=== PATIENT | female | born 1995 | race African-American/Black ===

== ENCOUNTER 2016-03-06 23:02 | Emergency (ER) | payer MEDICAID ==
[~2016-03-06 23:02] MED LIST: MACR100C2 PO; PRENTAB36 PO; ZOFR4TAB3 SL
[2016-03-06 23:04] VITALS: BP 132/69; PULSE 89; RESP 14; TEMP 98.3; O2SAT 97
--- NOTE | 2016-03-06 23:24 | PD ---
HPI Chief Complaint: Complaint Time Seen by Provider: 23:20 Travel History International Travel<30 days: No Contact w/Intl Traveler<30days: No Traveled to known affect area: No History of Present Illness HPI This is a 20-year-old female who presents to the emergency department with dysuria, urinary frequency and urgency as well as some back pain. She says it has been going on for 2-3 days. She denies any fevers or chills. She denies any vomiting. She denies any vaginal discharge. PFSH Past Medical History Immunizations Current: Yes : 1 Para: 1 Social History Alcohol Use: No Tobacco Use: No Substance Use: Yes Allergies-Medications (Allergen,Severity, Reaction): Coded Allergies: No Known Allergies (Unverified , 03/06/16) Reported Meds & Prescriptions Reported Meds & Active Scripts Active Macrobid (Nitrofurantoin Monoh/Nitrofur Macro) 100 Mg Cap 100 Mg PO BID 5 Days Forte ( Multivit-Min W/Fe-FA) 1 Tab Tab 1 Tab PO DAILY 90 Days Zofran Odt (Ondansetron Odt) 4 Mg Tab 4 Mg SL Q8HR PRN Review of Systems Except as stated in HPI: all other systems reviewed are Neg Physical Exam Narrative GENERAL: Well-nourished, smells like marijuana. SKIN: Warm and dry. HEAD: Normocephalic. EYES: No scleral icterus. No injection or drainage. NECK: Supple, trachea midline. CARDIOVASCULAR: Regular rate and rhythm without murmurs. RESPIRATORY: Breath sounds equal bilaterally. No accessory muscle use. GASTROINTESTINAL: Abdomen soft, non-tender, nondistended. : No CVA tenderness. MUSCULOSKELETAL: No cyanosis, or edema. PSYCH: somewhat bizarre affect and poor eye contact Data Data Last Documented VS Vital Signs Date Time Temp Pulse Resp B/P Pulse Ox O2 Delivery O2 Flow Rate FiO2 03/06/16 23:04 98.3 89 14 132/69 97 Room Air Orders Urinalysis - C+S If Indicated (03/06/16 23:20) Urine Culture (03/06/16 23:30) Labs Laboratory Tests Test 03/06/16 23:30 Urine Color YELLOW Urine Turbidity HAZY Urine pH 6.0 Urine Specific [place] 1.036 Urine Protein 30 mg/dL Urine Glucose (UA) NEG mg/dL Urine Ketones NEG mg/dL Urine Occult Blood MOD Urine Nitrite NEG Urine Bilirubin NEG Urine Urobilinogen 4.0 MG/DL Urine Leukocyte Esterase MOD Urine RBC 2 /hpf Urine WBC 22 /hpf Urine Squamous Epithelial 7 /hpf Cells Urine Bacteria RARE /hpf Urine Hyaline Casts 6 /lpf Urine Mucus MANY /lpf Microscopic Urinalysis Comment CULTURE INDICATED MDM Medical Decision Making Medical Screen Exam Complete: Yes Emergency Medical Condition: Yes Interpretation(s) Afebrile, normotensive Urinalysis: 22 white blood cells, moderate leukocyte esterase Differential Diagnosis Urinary tract infection, pelvic inflammatory disease, Trichomonas Narrative Course This is a 20-year-old female who presents to the emergency department with dysuria, urinary urgency and frequency classic for urinary tract infection. She denies any vaginal discharge. Urinalysis demonstrates urinary tract infection. Patient will be discharged on antibiotics. Diagnosis Primary Impression: Urinary tract infection Qualified Code: N30.00 - Acute cystitis without hematuria Additional Instructions: If you develop fever, persistent vomiting, back pain, or inability to eat return to the emergency department as your urine infection may have progressed to a kidney infection. Complete your antibiotics as prescribed. Stay well hydrated with Gatorade or water. Followup with your primary care physician in 2-3 days if your symptoms have not resolved. Med/Other Pt SpecificInfo: Prescription(s) given Scripts Cephalexin (Keflex)500 Mg Ate227 Mg PO Q12H 7 Days Ref 0 Prov:Jenn Watkins MD 03/07/16 Disposition: 01 DISCHARGE HOME Condition: Stable Jenn Watkins MD Mar 06, 2016 23:24
[2016-03-07 00:30] LABS: BACTERIA, URINE RARE /hpf; BLOOD, URINE MOD (NEG); COMMENT (UR) CULTURE INDICATED; CULTURE IF INDICATED CULTURE INDICATED; GLUCOSE,URINE NEG (NEG); HYALINE CAST, URINE 6 /lpf (RARE); KETONE, URINE NEG (NEG); MUCUS URINE MANY /lpf (OCC); NITRITE,URINE NEG (NEG); SQUAMOUS EPITHELIAL CELL URINE 7 /hpf (0-5); URINE COLOR YELLOW (YELLW/STRAW)
[2016-03-07] MEDS ORDERED: CEPH-460 PO (00:36)
== END 2016-03-07 00:59 | disposition home or self-care (01) ==
LOC: NEPC 23:02
DX: N30.00 Acute cystitis without hematuria (principal); R35.0 Frequency of micturition
CPT/HCPCS: 81001; 87086; 99283

== ENCOUNTER 2016-05-22 07:22 | Inpatient (IN) | payer MEDICAID ==
[2016-05-22] VITALS (95 sets, daily range): BP systolic 84–130; BP diastolic 37–63; PULSE 73–106; RESP 16–18; TEMP 97.7–98.3
[~2016-05-22 07:22] MED LIST changes: +CEPH-460 PO
--- NOTE | 2016-05-22 07:55 | PD ---
HPI Chief Complaint concern for ROM Date Seen: May 22, 2016 (Jeramy Mejía MD R2) Travel History International Travel<30 Days: No Contact w/Intl Traveler<30Days: No (Jeramy Mejía MD R2) History of Present Illness HPI Ms. Bah is a 20 yo at 32 5/7 weeks (WILIAM 07/12/2016) patient of Dr. Olivarez who presents with concern for ROM. Patient states that she awoke with abundant water around her genital region this morning; patient states that she does not think she urinated. Patient denies associated abdominal pain suggestive of contractions. Patient denies vaginal bleeding. Patient does not report fever/chills, dysuria, headaches, visual changes, chest pain, shortness of breath, or leg swelling. Patient reports unremarkable course; she states that she is a patient of Dr. Olivarez. Patient reports prior ultrasounds were reassuring. Patient states she does not have a history of delivery. Para: 1 : 2 (Jeramy Mejía MD R2) History Past Medical History Medical History: Denies Significant Hx (Jeramy Mejía MD R2) Obstetric History Obstetric History First delivery was vaginal, full term (Jeramy Mejía MD R2) Past Surgical History Surgical History: No Previous Surgery (Jeramy Mejía MD R2) Social History Alcohol Use: No Substance Abuse: No (Jeramy Mejía MD R2) Allergies-Medications (Allergen,Severity, Reaction): Coded Allergies: No Known Allergies (Unverified , 03/07/16) Home Meds Active Scripts Cephalexin (Keflex)500 Mg Dry531 Mg PO Q12H 7 Days Ref 0 Prov:Jenn Watkins MD 03/07/16 Nitrofurantoin Monohydrate Macrocrystals (Macrobid)100 Mg Fyt842 Mg PO BID 5 Days Ref 0 Prov:Giovanni Kinney MD 12/21/15 Multivit-Min W/Fe-FA ( Forte)1 Tab Tab1 Tab PO DAILY 90 Days Ref 3 Prov:Giovanni Kinney MD 12/21/15 Ondansetron Odt (Zofran Odt)4 Mg Tab4 Mg SL Q8HR PRN (Nausea/Vomiting) #20 TAB Ref 0 Prov:Giovanni Kinney MD 12/21/15 Review of Systems General / Constitutional: No: Fever, Chills Cardiovascular: No: Chest Pain or Discomfort Respiratory: No: Short of Breath Gastrointestinal: No: Nausea, Vomiting Genitourinary: No: Urgency, Dysuria (Jeramy Mejía MD R2) Physical Exam BP 132/79 HR 83 Narrative GENERAL: Well-nourished, well-developed patient. SKIN: Warm and dry. HEAD: Normocephalic and atraumatic. EYES: No scleral icterus. No injection or drainage. ENT: No nasal drainage noted. Mucous membranes pink. Airway patent. NECK: Supple, trachea midline. No JVD. CARDIOVASCULAR: Regular rate and rhythm without murmurs. Normal rate RESPIRATORY: Breath sounds equal bilaterally. No accessory muscle use. ABDOMEN/GI: Abdomen soft, non-tender, bowel sounds present, no rebound, no guarding Gravid EXTREMITIES: No cyanosis or edema. BACK: Nontender without obvious deformity. No CVA tenderness. NEUROLOGICAL: Awake and alert. Motor and sensory grossly function within normal limits. GENITOURINARY: Membranes: Ruptured Uterine Contractions: None FHT's: Category: 1 Baseline: 130 Reactive: Y Variability: Mod Decels: None (Jeramy Mejía MD R2) MDM Medical Record Reviewed: Yes Narrative Course / MDM 20 yo at 32 5/7 weeks (WILIAM 07/12/2016) patient of Dr. Olivarez -concern for ROM -No contractions on EFM -Benign history Plan: -Continue EFM -Check Amnisure Interval: -Amnisure positive Updated Plan: -Will admit patient for PPROM -Will administer Betamethasone -Will start MgSO4 for neuro PPX -Will initiate prophylactic antibiotics -IV PCN -Oral erythromycin (pharmacy out of IV Erythromycin) -Continue to monitor EFM (Jeramy Mejía MD R2) Attending Attestation The exam, history, and the medical decision-making described in the above note were completed with the assistance of the resident provider. I reviewed and agree with the findings presented. I attest that I had a [id number] encounter with the patient on the same day, and personally performed and documented my assessment and findings in the medical record. sterile spec exam performed: cervix visually closed, clear fluid pool present GC/CT and GBS cultures collected (Viraj Kaye MD) Jeramy Mejía MD R2 May 22, 2016 07:55 Viraj Kaye MD May 22, 2016 08:56
[2016-05-22] MEDS ORDERED: SODIUM CHLORIDE 0.9% FLUSH 10 ML FLUSH IV FLUSH PRN (08:00)
[2016-05-22] MEDS ORDERED: CALCIUM GLUCONATE 10% 1 GM/10 ML VIAL IV PRN (08:00)
[2016-05-22] MEDS ORDERED: BETAMETHASONE SOD PHOS/ACETATE SUSP 30 MG/5 ML VIAL IM SCH (08:00)
[2016-05-22] MEDS ORDERED: MAGNESIUM SULFATE 4 GM PREMIX 100 ML IV ONE (08:00)
--- NOTE | 2016-05-22 08:18 | HHI.HP ---
History & Physical H&P OB ED Note (Detail) Patient Name: Gio Bah Unit Number: [id number] Date of : 1995 Patient Status: Registered Emergency Room Attending Doctor: Viraj Kaye MD HPI HPI Chief Complaint concern for ROM Date Seen: May 22, 2016 Travel History International Travel<30 Days: No Contact w/Intl Traveler<30Days: No History of Present Illness HPI Ms. Bah is a 20 yo at 32 5/7 weeks (WILIAM 07/12/2016) patient of Dr. Olivarez who presents with concern for ROM. Patient states that she awoke with abundant water around her genital region this morning; patient states that she does not think she urinated. Patient denies associated abdominal pain suggestive of contractions. Patient denies vaginal bleeding. Patient does not report fever/chills, dysuria, headaches, visual changes, chest pain, shortness of breath, or leg swelling. Patient reports unremarkable course; she states that she is a patient of Dr. Olivarez. Patient reports prior ultrasounds were reassuring. Patient states she does not have a history of delivery. Para: 1 : 2 History (Limited) History Past Medical History Medical History: Denies Significant Hx Obstetric History Obstetric History First delivery was vaginal, full term Past Surgical History Surgical History: No Previous Surgery Social History Alcohol Use: No Substance Abuse: No Allergies-Medications Allergies-Medications (Allergen,Severity, Reaction): Coded Allergies: No Known Allergies (Unverified , 03/07/16) Home Meds Active Scripts Cephalexin (Keflex)500 Mg Flr777 Mg PO Q12H 7 Days Ref 0 Prov:Jenn Watkins MD 03/07/16 Nitrofurantoin Monohydrate Macrocrystals (Macrobid)100 Mg Dnh272 Mg PO BID 5 Days Ref 0 Prov:Giovanni Kinney MD 12/21/15 Multivit-Min W/Fe-FA ( Forte)1 Tab Tab1 Tab PO DAILY 90 Days Ref 3 Prov:Giovanni Kinney MD 12/21/15 Ondansetron Odt (Zofran Odt)4 Mg Tab4 Mg SL Q8HR PRN (Nausea/Vomiting) #20 TAB Ref 0 Prov:Giovanni Kinney MD 12/21/15 ROS Review of Systems General / Constitutional: No: Fever, Chills Cardiovascular: No: Chest Pain or Discomfort Respiratory: No: Short of Breath Gastrointestinal: No: Nausea, Vomiting Genitourinary: No: Urgency, Dysuria Physical Exam Physical Exam BP 132/79 HR 83 Narrative GENERAL: Well-nourished, well-developed patient. SKIN: Warm and dry. HEAD: Normocephalic and atraumatic. EYES: No scleral icterus. No injection or drainage. ENT: No nasal drainage noted. Mucous membranes pink. Airway patent. NECK: Supple, trachea midline. No JVD. CARDIOVASCULAR: Regular rate and rhythm without murmurs. Normal rate RESPIRATORY: Breath sounds equal bilaterally. No accessory muscle use. ABDOMEN/GI: Abdomen soft, non-tender, bowel sounds present, no rebound, no guarding Gravid EXTREMITIES: No cyanosis or edema. BACK: Nontender without obvious deformity. No CVA tenderness. NEUROLOGICAL: Awake and alert. Motor and sensory grossly function within normal limits. GENITOURINARY: Membranes: Ruptured Uterine Contractions: None FHT's: Category: 1 Baseline: 130 Reactive: Y Variability: Mod Decels: None Data Data MDM [facility] Medical Record Reviewed: Yes Narrative Course / MDM 20 yo at 32 5/7 weeks (WILIAM 07/12/2016) patient of Dr. Olivarez -concern for ROM -No contractions on EFM -Benign history Plan: -Continue EFM -Check Amnisure Interval: -Amnisure positive Updated Plan: -Will admit patient for PPROM -Will administer Betamethasone -Will start MgSO4 for neuro PPX -Will initiate prophylactic antibiotics -IV PCN -Oral erythromycin (pharmacy out of IV Erythromycin) -Continue to monitor EFM (Jeramy Mejía MD R2) H&P The exam, history, and the medical decision-making described in the above note were completed with the assistance of the resident provider. I reviewed and agree with the findings presented. I attest that I had a [id number] encounter with the patient on the same day, and personally performed and documented my assessment and findings in the medical record. sterile spec exam performed. cervix vis closed, clear fluid pool present GC/CT and GBS collected (Viraj Kaye MD) Jeramy Mejía MD R2 May 22, 2016 08:18 Viraj Kaye MD May 22, 2016 08:58
[2016-05-22] MEDS: SODIUM CHLORIDE 0.9% FLUSH 10 ML FLUSH IV FLUSH SCH ×2 (09:00→21:00)
[2016-05-22] MEDS ORDERED: PENICILLIN G POTASSIUM INJ 5,000,000 UNITS in SODIUM CHLORIDE 0.9% INJ 100 ML IV SCH (09:00)
[2016-05-22] MEDS: LACTATED RINGER'S 1000 ML INJ 1,000 ML IV SCH ×2 (09:39→17:19)
[2016-05-22] MEDS: MAGNESIUM SULFATE 40 GM PREMIX 1,000 ML IV SCH (09:46)
[2016-05-22] MEDS: BETAMETHASONE SOD PHOS/ACETATE SUSP 30 MG/5 ML VIAL IM SCH (09:48)
[2016-05-22 09:50] LABS: BLOOD, URINE NEG (NEG); COMMENT (UR) CULT NOT INDICATED; CULTURE IF INDICATED CULT NOT INDICATED; GLUCOSE,URINE NEG (NEG); KETONE, URINE NEG (NEG); MUCUS URINE FEW /lpf (OCC); NITRITE,URINE NEG (NEG); SQUAMOUS EPITHELIAL CELL URINE 1 /hpf (0-5); URINE COLOR YELLOW (YELLW/STRAW)
[2016-05-22 09:54] LABS: AMPHETAMINE, URINE NEG (NEG); BARBITURATES, URINE NEG (NEG); COCAINE, URINE NEG (NEG)
[2016-05-22 10:34] LABS: AUTOMATED NEUTROPHIL # 4.9 TH/MM3 (1.8-7.7); BASOPHIL % 0.3 % (0.0-2.0); EOSINOPHIL % 0.4 % (0.0-4.0); HEMATOCRIT 30.2 % (35.0-46.0); HEMO FLAGS DIFF FINAL; LYMPH % 27.4 % (9.0-44.0); LYMPHOCYTE # 2.2 TH/MM3 (1.0-4.8); MEAN CELL VOLUME 89.9 FL (80.0-100.0); MEAN CORPUSCULAR HEMOGLOBIN 30.3 PG (27.0-34.0); MEAN CORPUSCULAR HGB CONC 33.7 % (32.0-36.0); MONO % 11.8 % (0.0-8.0); NEUT % 60.1 % (16.0-70.0); PLATELET COUNT 219 TH/MM3 (150-450); RED BLOOD COUNT 3.36 MIL/MM3 (4.00-5.30); RED CELL DISTRIBUTION WIDTH 13.1 % (11.6-17.2); WHITE BLOOD COUNT 8.2 TH/MM3 (4.0-11.0)
[2016-05-22] MEDS: ERYTHROMYCIN EC 500 MG TABEC PO SCH ×2 (10:44→17:13)
[2016-05-22 12:31] LABS: AUTOMATED NEUTROPHIL # 6.9 TH/MM3 (1.8-7.7); BASOPHIL % 0.2 % (0.0-2.0); EOSINOPHIL % 0.1 % (0.0-4.0); HEMO FLAGS DIFF FINAL; LYMPH % 14.5 % (9.0-44.0); LYMPHOCYTE # 1.2 TH/MM3 (1.0-4.8); MEAN CELL VOLUME 90.9 FL (80.0-100.0); MONO % 4.4 % (0.0-8.0); NEUT % 80.8 % (16.0-70.0); PLATELET COUNT 222 TH/MM3 (150-450); RED BLOOD COUNT 3.52 MIL/MM3 (4.00-5.30); RED CELL DISTRIBUTION WIDTH 12.7 % (11.6-17.2); WHITE BLOOD COUNT 8.6 TH/MM3 (4.0-11.0)
[2016-05-22 13:08] LABS: RUBELLA IGG ANTIBODY 102.1 IU/mL (10.0-500.0); RUBELLA STATUS IMMUNE (IMMUNE)
[2016-05-22] MEDS: PENICILLIN G POTASSIUM INJ 2,500,000 UNITS in SODIUM CHLORIDE 0.9% INJ 100 ML IV SCH ×2 (16:00→22:07)
[2016-05-23] VITALS (155 sets, daily range): BP systolic 91–118; BP diastolic 36–65; PULSE 71–103; RESP 16–20; TEMP 98.1–98.4
[2016-05-23] MEDS: ERYTHROMYCIN EC 500 MG TABEC PO SCH ×4 (00:06→17:35)
[2016-05-23] MEDS: PENICILLIN G POTASSIUM INJ 2,500,000 UNITS in SODIUM CHLORIDE 0.9% INJ 100 ML IV SCH ×6 (01:14→21:01)
[2016-05-23] MEDS: LACTATED RINGER'S 1000 ML INJ 1,000 ML IV SCH (05:36)
[2016-05-23 05:52] LABS: AUTOMATED NEUTROPHIL # 10.7 TH/MM3 (1.8-7.7); BASOPHIL % 0.3 % (0.0-2.0); HEMATOCRIT 29.9 % (35.0-46.0); HEMO FLAGS DIFF FINAL; LYMPH % 10.7 % (9.0-44.0); LYMPHOCYTE # 1.4 TH/MM3 (1.0-4.8); MEAN CELL VOLUME 89.6 FL (80.0-100.0); MEAN CORPUSCULAR HEMOGLOBIN 30.6 PG (27.0-34.0); MEAN CORPUSCULAR HGB CONC 34.2 % (32.0-36.0); MONO % 6.6 % (0.0-8.0); NEUT % 82.4 % (16.0-70.0); PLATELET COUNT 250 TH/MM3 (150-450); RED BLOOD COUNT 3.34 MIL/MM3 (4.00-5.30)
[2016-05-23] MEDS: MAGNESIUM SULFATE 40 GM PREMIX 1,000 ML IV SCH (07:55)
[2016-05-23] MEDS: SODIUM CHLORIDE 0.9% FLUSH 10 ML FLUSH IV FLUSH SCH ×2 (09:00→21:00)
[2016-05-23] MEDS: DOCUSATE SODIUM 100 MG CAP PO SCH (09:39)
[2016-05-23] MEDS: BETAMETHASONE SOD PHOS/ACETATE SUSP 30 MG/5 ML VIAL IM SCH (09:39)
[2016-05-23] MEDS: MULTIVIT/MIN/PREN/FOL AC/IRON PRENATAL TAB PO SCH (09:39)
--- NOTE | 2016-05-23 11:51 | PD.OB.ANTE ---
Subjective Interval History Pt reports some ctxs this am but now feeling better, minimal drainage of fluid, no pain, no co Objective Vital Signs Vital Signs Date Time Temp Pulse Resp B/P Pulse Ox O2 Delivery O2 Flow Rate FiO2 05/23/16 10:40 80 05/23/16 10:35 78 05/23/16 10:30 77 05/23/16 10:25 83 05/23/16 10:20 84 05/23/16 10:15 79 05/23/16 10:10 82 05/23/16 10:05 82 05/23/16 10:00 98.2 05/23/16 10:00 89 107/48 05/23/16 10:00 77 05/23/16 09:58 18 05/23/16 09:55 103 05/23/16 09:50 93 05/23/16 09:45 91 05/23/16 09:40 97 05/23/16 09:35 87 05/23/16 09:30 80 05/23/16 09:25 79 05/23/16 09:20 78 05/23/16 09:15 77 05/23/16 09:10 81 05/23/16 09:05 79 05/23/16 09:00 83 91/46 05/23/16 09:00 81 05/23/16 08:55 81 05/23/16 08:50 82 05/23/16 08:45 85 05/23/16 08:40 78 05/23/16 08:35 79 05/23/16 08:30 78 05/23/16 08:25 79 05/23/16 08:20 78 05/23/16 08:15 79 05/23/16 08:10 79 05/23/16 08:05 87 05/23/16 08:00 79 104/47 05/23/16 08:00 85 05/23/16 07:40 86 05/23/16 07:35 86 05/23/16 07:30 90 05/23/16 07:25 79 05/23/16 07:20 84 05/23/16 07:15 87 05/23/16 07:11 98.3 18 05/23/16 07:10 94 05/23/16 07:05 81 05/23/16 07:00 78 05/23/16 07:00 80 118/48 05/23/16 06:21 20 05/23/16 06:20 77 05/23/16 06:15 78 05/23/16 06:10 75 05/23/16 06:05 75 05/23/16 06:00 74 05/23/16 06:00 77 100/46 05/23/16 05:30 20 05/23/16 05:20 80 05/23/16 05:15 87 05/23/16 05:10 103 05/23/16 05:05 90 05/23/16 05:00 77 05/23/16 05:00 80 112/52 05/23/16 04:06 20 05/23/16 04:05 87 05/23/16 04:00 88 05/23/16 04:00 94 108/43 05/23/16 03:35 20 05/23/16 03:10 79 05/23/16 03:05 81 05/23/16 03:00 81 05/23/16 03:00 85 104/52 05/23/16 02:45 80 05/23/16 02:40 79 05/23/16 02:35 80 05/23/16 02:30 81 05/23/16 02:25 84 05/23/16 02:20 79 05/23/16 02:15 80 05/23/16 02:10 77 18 05/23/16 02:05 77 05/23/16 02:00 86 05/23/16 02:00 82 108/63 05/23/16 01:16 18 05/23/16 01:15 73 05/23/16 01:10 75 05/23/16 01:05 71 05/23/16 01:00 72 05/23/16 01:00 76 99/58 05/23/16 00:11 20 05/23/16 00:05 79 05/23/16 00:00 78 109/65 05/23/16 00:00 86 05/22/16 23:45 97.7 05/22/16 23:41 18 05/22/16 23:40 78 05/22/16 23:35 80 05/22/16 23:30 79 05/22/16 23:25 83 05/22/16 23:20 73 05/22/16 23:15 79 05/22/16 23:10 78 05/22/16 23:05 76 05/22/16 23:00 75 112/54 05/22/16 23:00 73 05/22/16 22:15 82 18 05/22/16 22:10 85 05/22/16 22:05 92 05/22/16 22:01 88 98/43 05/22/16 22:00 86 05/22/16 21:15 98.3 81 18 05/22/16 21:10 89 05/22/16 21:05 86 05/22/16 21:00 83 122/60 05/22/16 21:00 84 05/22/16 20:00 82 05/22/16 20:00 18 05/22/16 20:00 83 130/54 05/22/16 19:55 89 05/22/16 19:50 87 05/22/16 19:45 86 05/22/16 19:40 84 05/22/16 19:35 84 05/22/16 19:30 84 05/22/16 19:25 85 05/22/16 19:20 94 05/22/16 19:15 83 05/22/16 19:10 86 05/22/16 19:05 84 05/22/16 19:00 84 95/37 05/22/16 19:00 78 05/22/16 18:20 87 05/22/16 18:15 89 05/22/16 18:10 91 05/22/16 18:05 85 05/22/16 18:00 88 84/63 05/22/16 18:00 81 05/22/16 17:55 83 05/22/16 17:50 84 05/22/16 17:45 84 05/22/16 17:40 82 05/22/16 17:35 88 05/22/16 17:30 87 05/22/16 17:25 83 05/22/16 17:20 88 05/22/16 17:15 91 05/22/16 17:10 84 05/22/16 17:05 82 05/22/16 17:00 18 05/22/16 17:00 80 05/22/16 17:00 84 117/51 05/22/16 16:55 83 05/22/16 16:50 85 05/22/16 16:45 86 05/22/16 16:40 106 4/14/17 16:35 102 05/22/16 16:30 89 05/22/16 16:25 91 05/22/16 16:20 89 05/22/16 16:15 85 05/22/16 16:10 84 05/22/16 16:05 82 05/22/16 16:00 77 101/42 05/22/16 16:00 85 05/22/16 15:52 98.2 05/22/16 15:51 81 05/22/16 15:50 84 116/48 05/22/16 15:50 81 05/22/16 15:45 83 05/22/16 15:40 82 05/22/16 15:35 81 05/22/16 15:30 90 05/22/16 15:25 83 05/22/16 15:20 85 05/22/16 15:15 87 05/22/16 15:10 80 05/22/16 15:05 98 05/22/16 15:00 113/58 05/22/16 15:00 98.1 80 16 05/22/16 14:55 80 05/22/16 14:50 81 05/22/16 14:45 84 05/22/16 14:40 82 05/22/16 14:35 81 05/22/16 14:30 78 05/22/16 14:25 82 05/22/16 14:20 79 05/22/16 14:15 80 05/22/16 14:10 79 05/22/16 14:05 82 05/22/16 14:00 79 05/22/16 13:55 79 05/22/16 13:53 77 99/56 05/22/16 13:50 77 05/22/16 13:45 78 05/22/16 13:40 78 05/22/16 13:35 79 05/22/16 13:30 78 05/22/16 13:25 74 Lab & Micro Results Test 05/22/16 05/23/16 11:50 05:36 White Blood Count 8.6 TH/MM3 13.0 TH/MM3 Red Blood Count 3.52 MIL/MM3 3.34 MIL/MM3 Hemoglobin 10.6 GM/DL 10.2 GM/DL Hematocrit 32.0 % 29.9 % Mean Corpuscular Volume 90.9 FL 89.6 FL Mean Corpuscular Hemoglobin 30.0 PG 30.6 PG Mean Corpuscular Hemoglobin 33.0 % 34.2 % Concent Red Cell Distribution Width 12.7 % 13.0 % Platelet Count 222 TH/MM3 250 TH/MM3 Mean Platelet Volume 8.6 FL 8.5 FL Neutrophils (%) (Auto) 80.8 % 82.4 % Lymphocytes (%) (Auto) 14.5 % 10.7 % Monocytes (%) (Auto) 4.4 % 6.6 % Eosinophils (%) (Auto) 0.1 % 0.0 % Basophils (%) (Auto) 0.2 % 0.3 % Neutrophils # (Auto) 6.9 TH/MM3 10.7 TH/MM3 Lymphocytes # (Auto) 1.2 TH/MM3 1.4 TH/MM3 Monocytes # (Auto) 0.4 TH/MM3 0.9 TH/MM3 Eosinophils # (Auto) 0.0 TH/MM3 0.0 TH/MM3 Basophils # (Auto) 0.0 TH/MM3 0.0 TH/MM3 CBC Comment DIFF FINAL DIFF FINAL Differential Comment Hepatitis A IgM Antibody NEGATIVE Hepatitis B Surface Antigen NEGATIVE Hepatitis B Core IgM Antibody NEGATIVE Hepatitis C Antibody NEGATIVE HIV (1&2) Antibody NEGATIVE Rubella Immunity Screen IMMUNE Rubella Antibody, Quantitative 102.1 IU/mL Blood Type O POSITIVE Antibody Screen NEGATIVE Date/Time Procedure Status Source Growth 05/22/16 12:30 Cancelled Genital Vaginal 05/22/16 09:00 Cancelled Genital Vaginal Physical Exam GENERAL: Well-nourished, well-developed patient. CARDIOVASCULAR: Regular rate and rhythm without murmurs, gallops, or rubs. RESPIRATORY: Breath sounds equal bilaterally. No accessory muscle use. ABDOMEN/GI: Abdomen soft, non-tender. Fundus: nontender GENITOURINARY: External Genitalia: intact and normal in appearance Cervix: [-] Dilatation: [-] Effacement: [-] Station: [-] Presentation: [-] Membranes: [-] Uterine Contractions: [-] FHT's: Category: [ Baseline:140 Reactive: reactive Variability: [-] Decels: [-] EXTREMITIES: No cyanosis or edema, non-tender, without signs of DVT. Assessment and Plan Problem List: (1) Premature rupture of membranes (PROM) affecting second Status: Acute Assessment and Plan IUP 32 6/7 wks with PROM 24 hrs, s/p steriods, s/p 24 hr mag, no sign infection , reassuring tracing 1. continue current plan 2. recheck fluid on wednesday Irma Alvarez MD May 23, 2016 11:51
[2016-05-24] VITALS (107 sets, daily range): BP systolic 94–110; BP diastolic 36–48; PULSE 42–94; RESP 16–18; TEMP 97.7–98.7
[2016-05-24] MEDS: PENICILLIN G POTASSIUM INJ 2,500,000 UNITS in SODIUM CHLORIDE 0.9% INJ 100 ML IV SCH ×6 (00:14→20:58)
[2016-05-24] MEDS: ERYTHROMYCIN EC 500 MG TABEC PO SCH ×4 (00:14→17:17)
[2016-05-24] MEDS: MAGNESIUM SULFATE 40 GM PREMIX 1,000 ML IV SCH (07:55)
[2016-05-24] MEDS: MULTIVIT/MIN/PREN/FOL AC/IRON PRENATAL TAB PO SCH (09:16)
[2016-05-24] MEDS: SODIUM CHLORIDE 0.9% FLUSH 10 ML FLUSH IV FLUSH SCH (09:16)
[2016-05-24] MEDS: DOCUSATE SODIUM 100 MG CAP PO SCH (09:16)
--- NOTE | 2016-05-24 12:39 | PD.OB.ANTE ---
Subjective Diagnosis: (1) Premature rupture of membranes (PROM) affecting second Interval History Pt denies ctxs, still leaking fluid, pink tinged, good movement, no pain Objective Vital Signs Vital Signs Date Time Temp Pulse Resp B/P Pulse Ox O2 Delivery O2 Flow Rate FiO2 05/24/16 11:59 73 05/24/16 11:54 72 05/24/16 11:49 76 05/24/16 11:44 80 05/24/16 11:39 80 05/24/16 11:34 78 05/24/16 11:29 73 05/24/16 11:28 97.7 05/24/16 11:24 78 05/24/16 11:19 77 05/24/16 11:14 80 05/24/16 11:09 78 05/24/16 11:04 74 05/24/16 10:44 74 05/24/16 10:39 71 05/24/16 10:34 72 05/24/16 10:29 76 05/24/16 10:19 80 05/24/16 10:14 73 05/24/16 10:09 75 05/24/16 10:04 82 05/24/16 09:59 74 05/24/16 09:54 75 05/24/16 09:49 77 05/24/16 09:44 73 05/24/16 09:39 73 05/24/16 09:34 75 05/24/16 09:32 17 05/24/16 09:29 85 05/24/16 09:19 81 05/24/16 09:15 76 106/43 05/24/16 09:14 71 05/24/16 09:09 71 05/24/16 09:04 73 05/24/16 09:00 98.7 05/24/16 05:38 98.1 05/24/16 05:37 16 05/24/16 05:36 83 94/48 05/24/16 05:34 69 05/24/16 05:29 69 05/24/16 05:24 68 05/24/16 05:19 70 05/24/16 05:14 74 05/24/16 05:09 69 05/24/16 05:04 70 05/24/16 00:12 76 105/36 05/24/16 00:12 98.5 16 05/24/16 00:09 79 05/24/16 00:04 84 05/23/16 20:38 89 101/56 05/23/16 20:37 98.1 16 05/23/16 20:35 86 05/23/16 20:30 80 05/23/16 20:25 79 05/23/16 20:20 80 05/23/16 20:15 85 05/23/16 20:10 88 05/23/16 20:05 91 05/23/16 20:00 78 05/23/16 17:45 74 05/23/16 17:40 87 05/23/16 17:35 72 05/23/16 17:34 18 05/23/16 17:33 95/38 05/23/16 17:33 98.4 74 05/23/16 17:30 77 05/23/16 17:25 76 05/23/16 17:20 77 05/23/16 17:15 74 05/23/16 17:10 76 05/23/16 17:05 72 05/23/16 17:00 73 05/23/16 14:55 78 05/23/16 14:50 86 05/23/16 14:45 92 05/23/16 14:35 75 05/23/16 14:30 76 05/23/16 14:25 83 05/23/16 14:21 84 100/36 05/23/16 14:20 83 18 05/23/16 14:15 83 05/23/16 14:10 82 05/23/16 14:05 82 05/23/16 14:00 84 05/23/16 13:55 82 05/23/16 13:50 83 05/23/16 13:45 82 05/23/16 13:40 81 05/23/16 13:35 90 05/23/16 13:30 88 05/23/16 13:25 101 05/23/16 13:20 78 05/23/16 13:15 77 05/23/16 13:10 77 05/23/16 13:05 78 05/23/16 13:00 77 05/23/16 12:55 76 05/23/16 12:50 71 05/23/16 12:46 98.2 05/23/16 12:45 74 05/23/16 12:40 82 Lab & Micro Results Date/Time Procedure Status Source Growth 05/22/16 12:30 Cancelled Genital Vaginal 05/22/16 09:00 Cancelled Genital Vaginal Physical Exam GENERAL: Well-nourished, well-developed patient. CARDIOVASCULAR: Regular rate and rhythm without murmurs, gallops, or rubs. RESPIRATORY: Breath sounds equal bilaterally. No accessory muscle use. ABDOMEN/GI: Abdomen soft, non-tender. Fundus: [-] GENITOURINARY: External Genitalia: intact and normal in appearance Cervix: [-] Dilatation: [-] Effacement: [-] Station: [-] Presentation: [-] Membranes: [-] Uterine Contractions: no ctxs FHT's: Category: [-] Baseline: 140's Reactive: yes Variability: [-] Decels: [-] EXTREMITIES: No cyanosis or edema, non-tender, without signs of DVT. Assessment and Plan Problem List: (1) Premature rupture of membranes (PROM) affecting second Status: Acute Assessment and Plan IUP 33 wks wks with PROM , s/p steriods, s/p 24 hr mag, no sign infection, reassuring tracing 1. continue current plan 2. recheck fluid on wednesday Irma Alvarez MD May 24, 2016 12:39
[2016-05-25] VITALS (120 sets, daily range): BP systolic 96–126; BP diastolic 51–70; PULSE 61–98; RESP 16–20; TEMP 97.5–98.4; O2SAT 100
[2016-05-25] MEDS: SODIUM CHLORIDE 0.9% FLUSH 10 ML FLUSH IV FLUSH SCH ×3 (00:25→21:00)
[2016-05-25] MEDS: PENICILLIN G POTASSIUM INJ 2,500,000 UNITS in SODIUM CHLORIDE 0.9% INJ 100 ML IV SCH ×3 (00:25→09:31)
[2016-05-25] MEDS: ERYTHROMYCIN EC 500 MG TABEC PO SCH ×2 (00:25→05:33)
[2016-05-25] MEDS: DOCUSATE SODIUM 100 MG CAP PO SCH (09:38)
[2016-05-25] MEDS: MULTIVIT/MIN/PREN/FOL AC/IRON PRENATAL TAB PO SCH (09:38)
--- NOTE | 2016-05-25 09:57 | HHI.PR ---
Subjective Remarks doing well 3 days PPROM at 33 1/7 weeks no sign of labor Objective Vital Signs Date Time Temp Pulse Resp B/P Pulse Ox O2 Delivery O2 Flow Rate FiO2 05/25/16 09:44 85 05/25/16 09:44 98.1 05/25/16 09:41 84 111/51 05/25/16 09:40 18 05/25/16 09:39 80 05/25/16 09:34 82 05/25/16 09:29 79 05/25/16 09:24 98 05/25/16 09:09 87 05/25/16 09:04 75 05/25/16 08:24 73 05/25/16 08:19 71 05/25/16 08:14 71 05/25/16 08:09 66 05/25/16 08:04 72 05/25/16 07:59 67 05/25/16 07:54 68 05/25/16 07:49 63 05/25/16 07:44 62 05/25/16 07:39 66 05/25/16 07:34 66 05/25/16 07:29 98.4 05/25/16 07:29 68 05/25/16 07:28 73 114/60 05/25/16 07:27 18 05/25/16 07:24 74 05/25/16 07:14 65 05/25/16 07:09 66 05/25/16 07:04 67 05/25/16 05:38 97.5 16 05/25/16 05:37 78 112/57 05/25/16 05:34 67 05/25/16 05:29 68 05/25/16 05:24 75 05/25/16 05:19 72 05/25/16 05:09 63 05/25/16 05:04 62 05/25/16 00:29 97.6 16 05/25/16 00:29 69 112/56 05/25/16 00:19 65 05/25/16 00:14 70 05/24/16 19:39 16 05/24/16 19:39 98.5 05/24/16 19:38 84 110/39 05/24/16 19:34 80 05/24/16 19:24 80 05/24/16 19:19 68 05/24/16 19:14 75 4/16/17 19:09 75 05/2417 19:04 79 16/17 18:49 69 16/17 18:44 72 1617 18:39 72 1617 18:34 77 1617 18:29 80 16/17 18:24 93 16/17 18:19 87 1617 18:14 78 1617 18:10 87 104/41 1617 18:09 79 1617 18:04 76 1617 18:00 98.6 18 1617 15:53 17 1617 15:29 71 16/17 15:24 71 16/17 15:19 71 1617 15:14 72 1617 15:11 71 107/38 16/17 15:10 79 99/36 1617 15:09 79 1617 15:04 78 1617 14:59 78 1617 14:54 76 1617 14:53 78 16/17 14:51 98.3 17 1617 14:51 83 16/17 14:49 76 1617 14:00 16 1617 14:00 18 1617 13:59 77 1617 13:54 79 16/17 13:49 78 1617 13:44 82 16/17 13:39 42 1617 13:34 80 1617 13:29 83 1617 13:24 85 1617 13:19 81 16/17 13:14 81 16/17 13:09 83 16/17 13:04 83 16/17 12:59 81 1617 12:54 81 16/17 12:49 79 1617 12:44 80 16/17 12:39 76 16/17 12:34 84 16/17 12:29 76 16/17 12:24 79 1617 12:19 79 1617 12:14 82 1617 12:09 91 4/16/17 12:04 94 05/24/16 11:59 73 05/24/16 11:54 72 05/24/16 11:49 76 05/24/16 11:44 80 05/24/16 11:39 80 05/24/16 11:34 78 05/24/16 11:29 73 05/24/16 11:28 97.7 05/24/16 11:24 78 05/24/16 11:19 77 05/24/16 11:14 80 05/24/16 11:09 78 05/24/16 11:04 74 05/24/16 10:44 74 05/24/16 10:39 71 05/24/16 10:34 72 05/24/16 10:29 76 05/24/16 10:19 80 05/24/16 10:14 73 05/24/16 10:09 75 05/24/16 10:04 82 05/24/16 09:59 74 Result Diagram: 05/23/16 0536 Other Results GENERAL: SKIN: Warm and dry. HEAD: Normocephalic. EYES: No scleral icterus. No injection or drainage. NECK: Supple, trachea midline. No JVD or lymphadenopathy. CARDIOVASCULAR: Regular rate and rhythm without murmurs, gallops, or rubs. RESPIRATORY: Breath sounds equal bilaterally. No accessory muscle use. GASTROINTESTINAL: Abdomen soft, non-tender, nondistended. MUSCULOSKELETAL: No cyanosis, or edema. BACK: Nontender without obvious deformity. No CVA tenderness. Assessment and Plan Problem List: (1) Premature rupture of membranes (PROM) affecting second Status: Acute Discussed Condition With doing well Shad Olivarez MD May 25, 2016 09:57
[2016-05-25] MEDS: LACTATED RINGER'S 1000 ML INJ 1,000 ML IV SCH (11:35)
[2016-05-25 15:10] LABS: RAPID PLASMA REAGIN SCREEN NON-REACTIVE (NON-REACTVE)
[2016-05-26] VITALS (123 sets, daily range): BP systolic 85–130; BP diastolic 36–84; PULSE 64–119; RESP 16–20; TEMP 97.8–99.1
[2016-05-26 05:56] LABS: BASOPHIL % 0.1 % (0.0-2.0); EOSINOPHIL % 0.1 % (0.0-4.0); HEMO FLAGS DIFF FINAL; LYMPH % 24.4 % (9.0-44.0); LYMPHOCYTE # 2.3 TH/MM3 (1.0-4.8); MEAN CELL VOLUME 90.3 FL (80.0-100.0); MEAN CORPUSCULAR HEMOGLOBIN 30.1 PG (27.0-34.0); MEAN CORPUSCULAR HGB CONC 33.3 % (32.0-36.0); MONO % 12.4 % (0.0-8.0); PLATELET COUNT 240 TH/MM3 (150-450); RED BLOOD COUNT 3.21 MIL/MM3 (4.00-5.30); RED CELL DISTRIBUTION WIDTH 12.9 % (11.6-17.2); WHITE BLOOD COUNT 9.5 TH/MM3 (4.0-11.0)
--- NOTE | 2016-05-26 08:25 | HHI.PR ---
Subjective Remarks doing well 4days PPROM at 33 2/7 weeks , few small CTX Objective Vital Signs Date Time Temp Pulse Resp B/P Pulse Ox O2 Delivery O2 Flow Rate FiO2 05/26/16 06:00 18 05/26/16 04:00 16 05/26/16 01:00 16 05/25/16 22:59 70 05/25/16 22:54 80 05/25/16 22:45 84 16 96/70 05/25/16 22:44 98.4 05/25/16 22:00 16 05/25/16 19:48 98.4 18 05/25/16 19:48 86 126/62 05/25/16 17:44 100 05/25/16 17:44 69 05/25/16 17:43 20 05/25/16 16:29 66 05/25/16 16:24 66 05/25/16 16:19 65 05/25/16 16:14 67 05/25/16 16:09 98.4 73 118/66 05/25/16 16:09 67 05/25/16 16:04 72 05/25/16 15:59 67 05/25/16 15:54 66 05/25/16 15:49 65 05/25/16 15:44 68 05/25/16 15:39 72 05/25/16 15:29 65 05/25/16 15:24 66 05/25/16 15:19 64 05/25/16 15:14 62 05/25/16 15:09 69 05/25/16 15:04 69 05/25/16 14:59 67 05/25/16 14:54 69 05/25/16 14:49 72 05/25/16 14:44 69 05/25/16 14:39 73 05/25/16 14:34 73 05/25/16 14:24 64 05/25/16 14:19 63 05/25/16 14:14 78 05/25/16 14:09 63 05/25/16 14:04 65 05/25/16 13:59 66 05/25/16 13:54 67 05/25/16 13:49 64 17 13:44 67 05/25/16 13:39 61 17 13:34 63 17 13:29 63 05/25/16 13:24 62 05/25/16 13:19 64 05/25/16 13:14 62 05/25/16 13:09 63 05/25/16 13:04 63 05/25/16 12:59 63 05/25/16 12:54 63 05/25/16 12:49 62 05/25/16 12:44 62 05/25/16 12:39 62 05/25/16 12:34 63 05/25/16 12:29 63 05/25/16 12:24 63 05/25/16 12:19 62 05/25/16 12:14 64 05/25/16 12:09 63 05/25/16 12:04 64 05/25/16 11:59 66 05/25/16 11:54 65 05/25/16 11:50 98.1 18 05/25/16 11:49 67 05/25/16 11:44 66 05/25/16 11:42 69 113/61 05/25/16 11:39 66 05/25/16 11:04 79 05/25/16 10:59 79 05/25/16 10:54 77 17 10:49 78 05/25/16 10:44 77 05/25/16 10:39 76 05/25/16 10:29 83 05/25/16 10:24 81 05/25/16 10:19 83 05/25/16 10:14 81 05/25/16 10:09 75 05/25/16 10:04 80 05/25/16 09:59 82 05/25/16 09:54 82 05/25/16 09:49 81 05/25/16 09:44 85 05/25/16 09:44 98.1 05/25/16 09:41 84 111/51 05/25/16 09:40 18 05/25/16 09:39 80 05/25/16 09:34 82 05/25/16 09:29 79 05/25/16 09:24 98 05/25/16 09:09 87 05/25/16 09:04 75 05/25/16 08:24 73 Result Diagram: 05/26/16 0540 Other Results GENERAL: SKIN: Warm and dry. HEAD: Normocephalic. EYES: No scleral icterus. No injection or drainage. NECK: Supple, trachea midline. No JVD or lymphadenopathy. GASTROINTESTINAL: Abdomen soft, non-tender, nondistended. MUSCULOSKELETAL: No cyanosis, or edema. BACK: Nontender without obvious deformity. No CVA tenderness. continues to leak Assessment and Plan Problem List: (1) Premature rupture of membranes (PROM) affecting second Status: Acute Shad Olivarez MD May 26, 2016 08:25
[2016-05-26] MEDS: MULTIVIT/MIN/PREN/FOL AC/IRON PRENATAL TAB PO SCH (10:04)
[2016-05-26] MEDS: DOCUSATE SODIUM 100 MG CAP PO SCH (10:04)
[2016-05-26] MEDS ORDERED: fentaNYL 2MCG-BUPIV 0.125% INJ 100 ML ONE (18:13)
[2016-05-26] MEDS ORDERED: NS 500 ML BOLUS IV PRN (19:00)
[2016-05-26] MEDS ORDERED: LACTATED RINGER'S 1000 ML BOLUS IV PRN (19:00)
[2016-05-26] MEDS: LACTATED RINGER'S 1000 ML IV SCH (19:00)
[2016-05-26] MEDS ORDERED: NS 1000 ML IV PRN (19:00)
[2016-05-26] MEDS ORDERED: PENICILLIN G POT 5,000,000 UNITS/NS 100 ML(Mini-Bag Plus) IV ONE ×2 (19:00)
[2016-05-26] MEDS ORDERED: CITRIC ACID-SODIUM CITRATE LIQ 30 ML UDC PO SCH (19:15)
[2016-05-26] MEDS ORDERED: MINERAL OIL 10 ML VIAL TOPICAL PRN (19:15)
[2016-05-26] MEDS ORDERED: LIDOCAINE HCL 1% 50 ML VIAL INFIL PRN (19:15)
[2016-05-26] MEDS ORDERED: LIDOCAINE HCL 1% 50 ML VIAL I-DERMAL PRN (19:15)
[2016-05-26] MEDS ORDERED: OXYTOCIN 30 UNITS 500ML PREMIX IV ONE (19:15)
[2016-05-26] MEDS: PENICILLIN G POT 2,500,000 UNITS/NS 100 ML IV SCH ×2 (23:00)
[2016-05-27] VITALS (19 sets, daily range): BP systolic 114–139; BP diastolic 61–106; PULSE 58–118; RESP 16–18; TEMP 97.8–98.9; O2SAT 98–100
--- NOTE | 2016-05-27 00:16 | HHI.PR ---
WAREHOUSE HANDLER Note Note Called to see patient due to bright red bleeding. 20yo at 33w1d admitted with PPROM, received betamethasone and experienced onset of labor today. Epidural placed. Cervix 9/C/0 with approx 20 cc bright red bleeding on exam. Additional 20-30 cc on previous pad. FHR 140, moderate variability, reactive, occasional variable decelerations with contractions to 120 x 30 sec. Category 1 tracing. Source of bleeding possibly cervix vs abruption. tracing is reassuring at this time and patient is progressing. Continue to monitor closely. Dr Hays notified of findings. Lorraine Tracy MD May 27, 2016 00:16
[2016-05-27] MEDS ORDERED: fentaNYL 2MCG-BUPIV 0.125% INJ 100 ML ONE (00:26)
[2016-05-27] MEDS ORDERED: BUPIVACAINE HCL PF 0.25% 10 ML VIAL ONE (00:28)
[2016-05-27] MEDS ORDERED: LIDOCAINE HCL 1.5% PF SOLN 20 ML AMP ONE (00:29)
[2016-05-27] MEDS ORDERED: ALUMINUM/MAGNESIUM/SIMETH 30 ML CUP PO PRN (01:00)
[2016-05-27] MEDS ORDERED: WITCH HAZEL 50%/GLYCERIN 12.5% 40 PAD JAR TOPICAL PRN (01:00)
[2016-05-27] MEDS ORDERED: ZOLPIDEM TARTRATE 5 MG TAB PO PRN (01:00)
[2016-05-27] MEDS ORDERED: DOCUSATE SODIUM 50 MG/SENNA 8.6 MG TAB PO PRN (01:00)
[2016-05-27] MEDS ORDERED: oxyCODONE/ACETAMINOPHEN 5 MG/325 MG TAB PO PRN (01:00)
[2016-05-27] MEDS ORDERED: ONDANSETRON ODT 4 MG TAB PO PRN (01:00)
[2016-05-27] MEDS ORDERED: SODIUM CHLORIDE 0.9% FLUSH 10 ML FLUSH IV FLUSH PRN (01:00)
[2016-05-27] MEDS ORDERED: ACETAMINOPHEN 325 MG TAB PO PRN (01:00)
[2016-05-27] MEDS ORDERED: BENZOCAINE 20% TOPICAL SPRAY 60 ML CAN TOPICAL PRN (01:00)
--- NOTE | 2016-05-27 01:00 | PD.OB.DELI ---
Delivery Date: May 27, 2016 Anesthesia: Epidural Episiotomy: None Vaginal Delivery: Normal, Spontaneous Presentation: Occiput posterior, Vertex Nuchal Cord: x1 Delayed cord clamping (45 sec): No : Female Placenta: Spontaneous delivery, Intact, 3 vessel cord Laceration: No lacerations Irma Alvarez MD May 27, 2016 01:00
[2016-05-27] MEDS: LACTATED RINGER'S 1000 ML IV SCH (03:00)
[2016-05-27] MEDS: PENICILLIN G POT 2,500,000 UNITS/NS 100 ML IV SCH ×4 (03:00→05:48)
[2016-05-27] MEDS: oxyCODONE/ACETAMINOPHEN 5 MG/325 MG TAB PO PRN (03:26)
[2016-05-27] MEDS: IBUPROFEN 600 MG TAB PO PRN ×3 (03:51→19:01)
[2016-05-27] MEDS: DOCUSATE SODIUM 100 MG CAP PO SCH (08:11)
[2016-05-27] MEDS: MULTIVIT/MIN/PREN/FOL AC/IRON PRENATAL TAB PO SCH (08:11)
[2016-05-27] MEDS ORDERED: SODIUM CHLORIDE 0.9% FLUSH 10 ML FLUSH IV FLUSH SCH (09:00)
[2016-05-27] MEDS ORDERED: DIPHTH/TETANUS/ACEL PERTUSSIS (BOOSTER) 0.5 ML VIAL/PFS IM ONE (16:00)
[2016-05-27] MEDS ORDERED: MEASLES, MUMPS, RUBELLA VACCINE 0.5 ML VIAL SQ ONE (16:00)
--- NOTE | 2016-05-27 18:43 | HHI.OB ---
Subjective Post Day: 1 Remarks doing well Objective Vitals/I&O Vital Signs Date Time Temp Pulse Resp B/P Pulse Ox O2 Delivery O2 Flow Rate FiO2 05/27/16 08:00 98.4 58 18 114/72 98 05/27/16 05:48 18 05/27/16 05:47 18 05/27/16 03:15 116/70 05/27/16 03:15 98.9 66 18 05/27/16 02:30 18 05/27/16 02:15 66 129/75 05/27/16 02:15 18 05/27/16 02:00 68 121/67 05/27/16 02:00 18 05/27/16 01:45 18 05/27/16 01:45 67 122/61 05/27/16 01:42 73 126/61 05/27/16 01:30 134/105 05/27/16 01:30 18 05/27/16 01:15 78 131/72 05/27/16 01:15 97.8 05/27/16 01:15 18 05/27/16 01:00 18 05/27/16 01:00 100 139/77 05/27/16 00:30 18 05/27/16 00:29 104 05/27/16 00:29 100 05/27/16 00:24 100 05/27/16 00:24 103 05/27/16 00:15 101 128/91 05/27/16 00:14 100 05/27/16 00:12 18 05/27/16 00:04 118 05/27/16 00:00 18 05/27/16 00:00 132/106 05/26/16 23:59 117 05/26/16 23:54 99 05/26/16 23:54 97 05/26/16 23:49 90 05/26/16 23:49 90 05/26/16 23:45 88 18 121/77 05/26/16 23:44 93 05/26/16 23:44 92 05/26/16 23:39 92 05/26/16 23:39 94 05/26/16 23:34 104 05/26/16 23:30 91 130/84 05/26/16 23:30 18 05/26/16 23:29 89 05/26/16 23:29 90 05/26/16 23:24 99 17 23:24 98 1817 23:19 116 1817 23:19 119 1817 23:15 18 05/26/16 23:15 99 118/67 17 23:14 95 1817 23:14 94 05/26/16 23:09 97 17 23:09 97 17 23:04 99 17 23:04 98 05/26/16 23:00 99.1 05/26/16 23:00 96 129/45 05/26/16 23:00 18 05/26/16 22:59 101 05/26/16 22:59 102 05/26/16 22:54 103 05/26/16 22:54 104 05/26/16 22:49 84 05/26/16 22:49 86 05/26/16 22:45 86 119/68 17 22:44 89 17 22:44 90 05/26/16 22:39 90 05/26/16 22:39 93 17 22:34 87 05/26/16 22:34 86 17 22:30 18 05/26/16 22:30 88 125/71 17 22:29 88 17 22:29 89 17 22:24 86 17 22:24 85 05/26/16 22:19 87 17 22:19 87 17 22:15 92 116/71 17 22:14 82 05/26/16 22:14 82 17 22:09 90 05/26/16 22:09 87 05/26/16 22:04 94 05/26/16 22:04 94 05/26/16 22:00 83 18 112/62 17 21:59 89 17 21:59 89 17 21:54 91 1817 21:54 88 17 21:49 89 17 21:49 86 17 21:45 80 93/79 1817 21:45 18 05/26/16 21:44 82 1817 21:44 80 4/1817 21:39 82 18/17 21:39 87 1817 21:34 85 1817 21:34 82 18/17 21:30 82 117/54 1817 21:30 18 1817 21:29 86 1817 21:29 88 1817 21:24 74 1817 21:24 79 17 21:19 79 17 21:19 77 1817 21:15 73 18 110/51 17 21:14 81 17 21:14 80 17 21:09 79 05/26/16 21:09 76 05/26/16 21:04 73 05/26/16 21:04 74 17 21:01 81 102/49 17 21:00 18 05/26/16 21:00 97.8 05/26/16 20:59 79 17 20:59 76 17 20:54 75 1817 20:54 74 17 20:49 78 123/48 1817 20:49 84 17 20:49 81 17 20:45 18 05/26/16 20:44 76 17 20:44 74 1817 20:39 70 1817 20:39 72 1817 20:34 72 1817 20:34 72 1817 20:32 73 109/52 1817 20:29 79 1817 20:29 74 18/17 20:24 74 1817 20:19 77 1817 20:19 78 1817 20:15 83 122/50 1817 20:14 81 1817 20:14 80 17 20:09 90 17 20:09 81 17 20:05 71 116/73 18/17 20:04 74 1817 20:04 73 17 20:00 115 124/71 1817 19:59 78 05/26/16 19:59 77 05/26/16 19:55 88 116/55 05/26/16 19:54 76 05/26/16 19:50 76 107/69 05/26/16 19:49 72 05/26/16 19:49 73 05/26/16 19:45 102 101/76 05/26/16 19:44 85 05/26/16 19:44 89 05/26/16 19:41 73 85/55 05/26/16 19:39 81 05/26/16 19:39 80 05/26/16 19:35 87 118/65 05/26/16 19:34 82 05/26/16 19:34 82 05/26/16 19:30 81 120/68 05/26/16 19:29 86 05/26/16 19:29 86 05/26/16 19:25 89 127/72 05/26/16 19:24 89 05/26/16 19:24 91 05/26/16 19:20 89 118/58 05/26/16 19:19 94 05/26/16 19:19 94 05/26/16 19:17 18 05/26/16 19:15 90 119/81 05/26/16 19:14 97 05/26/16 19:14 95 05/26/16 19:11 111 05/26/16 19:11 117/36 05/26/16 19:09 110 05/26/16 19:04 118 05/26/16 19:00 18 05/26/16 18:59 104 05/26/16 18:59 103 05/26/16 18:49 90 05/26/16 18:44 81 Objective Remarks GENERAL: Well-nourished, well-developed patient. ABDOMEN/GI: Abdomen soft, non-tender. Fundus: Firm, non-tender at umbilicus. GENITOURINARY: Light to moderate bleeding. EXTREMITIES: No cyanosis or edema, non-tender, without signs of DVT. Medications and IVs Current Medications Medications (Trade) Dose Ordered Sig/Camilo Route Start Time Stop Time Status Last Admin (NS Flush) 2 ml UNSCH PRN IV FLUSH 05/22/16 08:00 (NS Flush) 2 ml BID IV FLUSH 05/22/16 09:00 05/25/16 00:25 (Colace) 100 mg DAILY PO 05/23/16 09:00 05/27/16 08:11 Prenat Multivit/ [place]/Iron/Folic Ac 1 tab 1 tab DAILY PO 05/23/16 09:00 05/27/16 08:11 Penicillin G Potassium 3818124 units/Sodium Chloride 100 ml @ 200 mls/hr Q4H IV 05/26/16 23:00 05/26/16 23:00 Lactated Ringer's 1,000 ml @ 125 mls/hr Q8H IV 05/26/16 19:00 05/27/16 03:00 Lactated Ringer's 1,000 ml @ 3,000 mls/hr BOLUS PRN IV 05/26/16 19:00 Sodium Chloride 500 ml @ 1,000 mls/hr BOLUS PRN IV 05/26/16 19:00 (NS 1000 ml Inj) 1,000 ml @ 100 mls/hr Q10H PRN IV 05/26/16 19:00 (fentaNYL INJ) 50 mcg Q1H PRN IV PUSH 05/26/16 19:15 (fentaNYL INJ) 100 mcg Q1H PRN IV PUSH 05/26/16 19:15 (Muri-Lube Oil) 10 ml UNSCH PRN TOPICAL 05/26/16 19:15 (NS Flush) 2 ml BID IV FLUSH 05/27/16 09:00 (NS Flush) 2 ml UNSCH PRN IV FLUSH 05/27/16 01:00 (Tylenol) 650 mg Q4H PRN PO 05/27/16 01:00 (Motrin) 600 mg Q6H PRN PO 05/27/16 01:00 05/27/16 12:36 (Percocet 5-325 Mg) 1 tab Q4H PRN PO 05/27/16 01:00 05/27/16 03:26 (Percocet 5-325 Mg) 2 tab Q4H PRN PO 05/27/16 01:00 (Americaine 20% Top Spr) 1 spray Q4H PRN TOPICAL 05/27/16 01:00 05/27/16 03:26 (Tucks Pads) 1 applic QID PRN TOPICAL 05/27/16 01:00 05/27/16 03:26 (Linda-Colace) 2 tab Q12H PRN PO 05/27/16 01:00 (Ambien) 5 mg HS PRN PO 05/27/16 01:00 (Mag-Al Plus Susp Liq) 15 ml Q8H PRN PO 05/27/16 01:00 (Zofran Odt) 4 mg Q6H PRN PO 05/27/16 01:00 Assessment/Plan Problem List: (1) Premature rupture of membranes (PROM) affecting second Assessment and Plan delivery 05/27/2016 after labor occurred on 05/26/2016 Shad Olivarez MD May 27, 2016 18:43
[2016-05-28 08:15] VITALS: BP 122/82; PULSE 61; RESP 18; TEMP 98.6; O2SAT 98
[2016-05-28] MEDS: MULTIVIT/MIN/PREN/FOL AC/IRON PRENATAL TAB PO SCH (09:38)
[2016-05-28] MEDS: DOCUSATE SODIUM 100 MG CAP PO SCH (09:38)
[2016-05-28] MEDS: IBUPROFEN 600 MG TAB PO PRN (09:39)
[2016-05-28] MEDS: oxyCODONE/ACETAMINOPHEN 5 MG/325 MG TAB PO PRN (09:43)
--- NOTE | 2016-05-28 13:02 | HHI.OB ---
Subjective Post Day: 2 Remarks doing well Objective Vitals/I&O Vital Signs Date Time Temp Pulse Resp B/P Pulse Ox O2 Delivery O2 Flow Rate FiO2 05/28/16 08:15 98.6 61 18 122/82 98 05/27/16 19:05 98.8 61 16 119/74 Objective Remarks GENERAL: Well-nourished, well-developed patient. ABDOMEN/GI: Abdomen soft, non-tender. Fundus: Firm, non-tender at umbilicus. GENITOURINARY: Light to moderate bleeding. EXTREMITIES: No cyanosis or edema, non-tender, without signs of DVT. Medications and IVs Current Medications Medications (Trade) Dose Ordered Sig/Camilo Route Start Time Stop Time Status Last Admin (NS Flush) 2 ml UNSCH PRN IV FLUSH 05/22/16 08:00 (NS Flush) 2 ml BID IV FLUSH 05/22/16 09:00 05/25/16 00:25 (Colace) 100 mg DAILY PO 05/23/16 09:00 05/28/16 09:38 Prenat Multivit/ [place]/Iron/Folic Ac 1 tab 1 tab DAILY PO 05/23/16 09:00 05/28/16 09:38 Penicillin G Potassium 8199982 units/Sodium Chloride 100 ml @ 200 mls/hr Q4H IV 05/26/16 23:00 05/26/16 23:00 Lactated Ringer's 1,000 ml @ 125 mls/hr Q8H IV 05/26/16 19:00 05/27/16 03:00 Lactated Ringer's 1,000 ml @ 3,000 mls/hr BOLUS PRN IV 05/26/16 19:00 Sodium Chloride 500 ml @ 1,000 mls/hr BOLUS PRN IV 05/26/16 19:00 (NS 1000 ml Inj) 1,000 ml @ 100 mls/hr Q10H PRN IV 05/26/16 19:00 (fentaNYL INJ) 50 mcg Q1H PRN IV PUSH 05/26/16 19:15 (fentaNYL INJ) 100 mcg Q1H PRN IV PUSH 05/26/16 19:15 (Muri-Lube Oil) 10 ml UNSCH PRN TOPICAL 05/26/16 19:15 (NS Flush) 2 ml BID IV FLUSH 05/27/16 09:00 (NS Flush) 2 ml UNSCH PRN IV FLUSH 05/27/16 01:00 (Tylenol) 650 mg Q4H PRN PO 05/27/16 01:00 (Motrin) 600 mg Q6H PRN PO 05/27/16 01:00 05/28/16 09:39 (Percocet 5-325 Mg) 1 tab Q4H PRN PO 05/27/16 01:00 05/28/16 09:43 (Percocet 5-325 Mg) 2 tab Q4H PRN PO 05/27/16 01:00 (Americaine 20% Top Spr) 1 spray Q4H PRN TOPICAL 05/27/16 01:00 05/27/16 03:26 (Tucks Pads) 1 applic QID PRN TOPICAL 05/27/16 01:00 05/27/16 03:26 (Linda-Colace) 2 tab Q12H PRN PO 05/27/16 01:00 (Ambien) 5 mg HS PRN PO 05/27/16 01:00 (Mag-Al Plus Susp Liq) 15 ml Q8H PRN PO 05/27/16 01:00 (Zofran Odt) 4 mg Q6H PRN PO 05/27/16 01:00 Assessment/Plan Problem List: (1) Premature rupture of membranes (PROM) affecting second (2) Spontaneous vaginal delivery Assessment and Plan delivery 05/27/2016 after labor occurred on 05/26/2016, DC home 05/26/16 dc Shad Olivarez MD May 28, 2016 13:02
--- NOTE | 2016-05-28 13:03 | HHI.DCPOC ---
Discharge Care Plan Diagnosis: (1) Spontaneous vaginal delivery Report Symptoms to Your Doctor -Temperate above 100.5 degrees -Redness, of incision or excessive or foul smelling drainage -Unusual pain or calf pain -Increased vaginal bleeding -Painful or difficulty urinating -Feelings of extreme sadness or anxiety after 2 weeks Goals to Promote Your Health * To prevent worsening of your condition and complications * To maintain your health at the optimal level Directions to Meet Your Goals Take your medications as prescribed Follow your dietary instruction Follow activity as directed Ensure plenty of rest for recovery Drink fluids for hydration Keep your appointments as scheduled Take your immunizations and boosters as scheduled If your symptoms worsen call your PCP, if no PCP go to Urgent Care Center or Emergency Room Smoking is Dangerous to Your Health. Avoid second hand smoke Call the 24-hour crisis hotline for domestic abuse at Shad Olivarez MD May 28, 2016 13:03
[2016-05-28] MEDS ORDERED: DOCU1CAP39 PO (13:05)
[2016-05-28] MEDS ORDERED: OXYC1TAB63 PO (13:05)
--- NOTE | 2016-05-28 13:07 | HHI.DS ---
Admission Date May 22, 2016 at 08:21 Discharge Date: May 28, 2016 Admitting Diagnosis Diagnosis: (1) Spontaneous vaginal delivery (2) Premature rupture of membranes (PROM) affecting second Delivery Date: May 27, 2016 Vaginal Delivery: Normal : Female Brief History Ms. Bah is a 20 yo at 32 5/7 weeks (WILIAM 07/12/2016) patient of Dr. Olivarez who presents with concern for ROM. Patient states that she awoke with abundant water around her genital region this morning; patient states that she does not think she urinated. Patient denies associated abdominal pain suggestive of contractions. Patient denies vaginal bleeding. Patient does not report fever/chills, dysuria, headaches, visual changes, chest pain, shortness of breath, or leg swelling. Patient reports unremarkable course; she states that she is a patient of Dr. Olivarez. Patient reports prior ultrasounds were reassuring. Patient states she does not have a history of delivery. Hospital Course Patient came for PPROM and then went into labor and delivered 05/27/2016 Pt Condition on Discharge: Good Discharge Disposition: Discharge Home Discharge Instructions Diet Instructions: As Tolerated, No Restrictions Activities You Can Perform: Regular-No Restrictions Activities to Avoid: Driving for 24 hrs Follow up Referrals: [employer] [facility]NAGER - 2 Weeks @ [facility] with Shad Olivarez MD PCP Follow-up New Medications: Docusate Sodium (Dok) 100 Mg Cap 100 MG PO DAILY Constipation #30 CAP Oxycodone-Acetaminophen (Oxycodone-Acetaminophen) 5-325 mg Tab 1 TAB PO Q4H PRN PAIN SCALE 3 TO 5 #20 TAB Continued Medications: Multivit-Min W/Fe-FA ( [place]) 1 Tab Tab 1 TAB PO DAILY Days 90 Ref 3 Discontinued Medications: Cephalexin (Keflex) 500 Mg Cap 500 MG PO Q12H Infection Days 7 Ref 0 CAP Nitrofurantoin Monohydrate Macrocrystals (Macrobid) 100 Mg Cap 100 MG PO BID Infection Days 5 Ref 0 CAP Ondansetron Odt (Zofran Odt) 4 Mg Tab 4 MG SL Q8HR PRN Nausea/Vomiting #20 Ref 0 TAB Shad Olivarez MD May 28, 2016 13:07
== END 2016-05-28 14:01 | disposition home or self-care (01) | DRG 775 ==
LOC: HOBED 07:22 → OBSVTOIN 08:21 → H2EB 08:21 → H1EA 05-27 03:15
PROVIDERS: ADMIT Obstetrics & Gynecology; ATTEND Obstetrics & Gynecology
PROC: 10E0XZZ Delivery of Products of Conception, External Approach (ICD-10-PCS; principal; 2016-05-22)
PROC: 00HU33Z Insertion of Infusion Device into Spinal Canal, Percutaneous Approach (ICD-10-PCS; 2016-05-22)
PROC: 3E0R3CZ (ICD-10-PCS; 2016-05-22)
DX: O42.113 Preterm premature rupture of membranes, onset of labor more than 24 hours following rupture, third trimester (principal); O69.81X0 Labor and delivery complicated by cord around neck, without compression, not applicable or unspecified; Z37.0 Single live birth; Z3A.33 33 weeks gestation of pregnancy
CPT/HCPCS: 76816; 76819; 80074; 80307; 81001; 84112; 85025; 86592; 86703; 86762; 86850; 86900; 86901; 87150; 88307; 99284; J0702; J2540; J3010; J3475; J7120

== ENCOUNTER 2016-09-18 14:33 | Emergency (ER) | payer MEDICAID ==
[~2016-09-18] VITALS: Ht 162.6 cm; Wt 85.0 kg
[~2016-09-18 14:33] MED LIST changes: -CEPH-460 PO; +DOCU1CAP39 PO; -MACR100C2 PO; +OXYC1TAB63 PO; -ZOFR4TAB3 SL
[2016-09-18 14:34] VITALS: BP 114/78; PULSE 67; RESP 12; TEMP 98.6; O2SAT 99
--- NOTE | 2016-09-18 14:51 | PD ---
Physical Exam Date Seen by Provider: Sep 18, 2016 Time Seen by Provider: 14:49 Narrative Pt is a 20 year old female presenting for evaluation of vaginal discharge for the last 2-3 days. She states the d/c of yellow greenish. Denies any abdominal pain, N/V. VSS, awaiting bed placement. Data Data Last Documented VS Vital Signs Date Time Temp Pulse Resp B/P Pulse Ox O2 Delivery O2 Flow Rate FiO2 09/18/16 14:34 98.6 67 12 114/78 99 MDM Supervised Visit with ELDER: Tracy Mejia Sep 18, 2016 14:51
== END 2016-09-18 14:59 | disposition left against medical advice (07) ==
LOC: NED 14:33
DX: N89.8 Other specified noninflammatory disorders of vagina (principal); Z53.21 Procedure and treatment not carried out due to patient leaving prior to being seen by health care provider
CPT/HCPCS: 99281